=== PATIENT | female | born 1980 | race Asian ===

== ENCOUNTER 2022-07-27 20:20 | Emergency (ER) | payer BC ==
[~2022-07-27] VITALS: Ht 157.5 cm; Wt 62.6 kg
[2022-07-27 20:33] VITALS: BP_SYST 144
--- NOTE | 2022-07-27 20:40 | NUR ---
PT HERE C/O SOB AND WHEEZING X5 YRS AND GOT WORST SINCE THIS MORNING. PT STATED THAT SHE'S BEEN ALSWAYS SOB AND WHEEZING SINCE 2017 AND TAKING INHALER AT HOME. NOTED COUGH. DENIES FEVER. PMH:HEART, ASTHMA PT AAOX4, NOT IN ANY DISTRESS. PENDING MD HARRIS
[2022-07-27] MEDS ORDERED: DECADRON 4 MG TABLET PO ONE (23:00)
[2022-07-27] MEDS ORDERED: IPRATROPIUM/ALBUTEROL SULFATE 3 ML AMPUL.NEB (DUONEB) INH ONE (23:00)
--- NOTE | 2022-07-27 23:00 | NUR ---
PT SEEN AND EXAMINE BY DR. PRESCOTT AND PT MEDICATED PER EMAR.
[2022-07-27] MEDS ORDERED: DEC4 PO (23:35)
--- NOTE | 2022-07-27 23:45 | NUR ---
DC PT HOME AAOX4, NO SOB NOTED AND NOT IN ANY DISTRESS. DC INSTRUCTION, PRESCRIPTION AND WORK NOTEF WERE GIVEN TO PT. ALSO INSTRUCTED TO F/U WITH HER PCP. SHE VERBALIZED UNDERSTANDING
== END 2022-07-27 23:43 | disposition home or self-care (01) ==
LOC: SED 20:20
DX: J45.909 Unspecified asthma, uncomplicated (principal); J06.9 Acute upper respiratory infection, unspecified; R05.9 Cough, unspecified; R07.9 Chest pain, unspecified; Z79.899 Other long term (current) drug therapy
CPT/HCPCS: 99283; 94640; J8540